=== PATIENT | male | born 1985 | race Caucasian/White ===

== ENCOUNTER 2022-02-23 14:53 | Emergency (ER) | payer OTHER ==
[~2022-02-23] VITALS: Ht 180.3 cm; Wt 131.9 kg
[2022-02-23] MEDS ORDERED: LEVOTAB10 PO (15:05)
[2022-02-23 19:05] VITALS: BP 144/81
== END 2022-02-23 19:06 | disposition home or self-care (01) ==
LOC: M ED 14:53
DX: S86.111A Strain of other muscle(s) and tendon(s) of posterior muscle group at lower leg level, right leg, initial encounter (principal); M54.50 Low back pain, unspecified; Y92.009 Unspecified place in unspecified non-institutional (private) residence as the place of occurrence of the external cause; Y93.02 Activity, running; Y99.9 Unspecified external cause status; Z79.899 Other long term (current) drug therapy